=== PATIENT | male | born 1975 | race Caucasian/White ===

== ENCOUNTER 2020-05-22 03:07 | Emergency (ER) | payer OTHER ==
[~2020-05-22 03:07] MED LIST: BACITRACIN15 GM TOP; COZAAR 100MG T100 MG PO; FLEXERIL10 MG PO; IBUPROFEN800 MG PO; MEDROL 4MG DOSEP4 MG PO; NORCO 5-325 TA1 EACH PO; PROTONIX 40MG T40 MG PO; TESSALON PERLE100 M1 PO; VENTOLIN HFA18 GM INH; ZOLOFT100 MG PO
== END 2020-05-22 04:02 ==
LOC: FER 03:07
DX: F10.10 Alcohol abuse, uncomplicated (principal); F17.200 Nicotine dependence, unspecified, uncomplicated; Z88.1 Allergy status to other antibiotic agents; Z88.8 Allergy status to other drugs, medicaments and biological substances; Y90.6 Blood alcohol level of 120-199 mg/100 ml
CPT/HCPCS: 36415; 99283; G0480

== ENCOUNTER 2020-05-27 18:34 | Emergency (ER) | payer OTHER ==
[2020-05-27] MEDS ORDERED: NORCO 5-325 TA1 EACH PO (19:21)
== END 2020-05-27 19:32 | disposition home or self-care (01) ==
LOC: FER 18:34
DX: S22.41XA Multiple fractures of ribs, right side, initial encounter for closed fracture (principal); F17.200 Nicotine dependence, unspecified, uncomplicated; W50.0XXA Accidental hit or strike by another person, initial encounter; Y35.811A Legal intervention involving manhandling, law enforcement official injured, initial encounter
CPT/HCPCS: 71101

== ENCOUNTER 2020-10-06 16:23 | Emergency (ER) | payer OTHER ==
[2020-10-06] MEDS ORDERED: NAPROXEN500 MG PO (18:17)
== END 2020-10-06 18:40 | disposition home or self-care (01) ==
LOC: FER 16:23
DX: M25.572 Pain in left ankle and joints of left foot (principal); F17.210 Nicotine dependence, cigarettes, uncomplicated; Z88.8 Allergy status to other drugs, medicaments and biological substances; Z98.890 Other specified postprocedural states
CPT/HCPCS: 73610

== ENCOUNTER 2020-10-11 19:14 | Emergency (ER) | payer OTHER ==
[~2020-10-11 19:14] MED LIST changes: +NAPROXEN500 MG PO
[2020-10-11] MEDS ORDERED: VOLTAREN **OUT50 MG PO (20:47)
[2020-10-11] MEDS ORDERED: NORCO 5-325 TA1 EACH PO (20:47)
== END 2020-10-11 21:10 | disposition home or self-care (01) ==
LOC: FER 19:14
DX: S86.112A Strain of other muscle(s) and tendon(s) of posterior muscle group at lower leg level, left leg, initial encounter (principal); F17.200 Nicotine dependence, unspecified, uncomplicated; Z79.1 Long term (current) use of non-steroidal anti-inflammatories (NSAID); Z88.8 Allergy status to other drugs, medicaments and biological substances; Z98.890 Other specified postprocedural states; X50.1XXA Overexertion from prolonged static or awkward postures, initial encounter
CPT/HCPCS: 99283

== ENCOUNTER 2020-11-04 15:46 | Emergency (ER) | payer OTHER ==
[~2020-11-04 15:46] MED LIST changes: +VOLTAREN **OUT50 MG PO
[2020-11-04 17:03] LABS: BASOPHIL 0.8 % (0-2); EOSINOPHIL 1.8 % (0-5); HGB 14.8 g/dl (13.2-18.0); LYMPHOCYTE 19.9 % (15-48); MCH 30.6 pg (25.0-31.0); MCHC 35.2 g/dL (32.0-36.0); MONOCYTE 5.3 % (0-12); MPV 10.3 fL (6.0-9.5); NEUTROPHIL 71.7 % (41-80); NRBC 0; PLT 259 K/uL (150-400); RBC 4.83 M/uL (4.70-6.00); RDW 12.5 % (11.5-14.0); WBC 10.9 K/uL (4.0-10.5)
[2020-11-04 17:05] LABS: ALBUMIN 3.5 g/dL (3.4-5.0); BILIRUBIN - TOTAL 0.2 mg/dL (0.2-1.0); BUN/CREAT RATIO (CALC) 18.4 RATIO; CREATININE 0.87 mg/dL (0.67-1.17); GLOBULIN (CALCULATION) 3.5 g/dL; POTASSIUM 4.1 mmol/L (3.5-5.1)
[2020-11-04 17:07] LABS: INR 1.03 (0.9-1.2); PROTHROMBIN TIME 12.9 SECONDS (11.8-13.4)
[2020-11-04] MEDS ORDERED: XARELTO15 MG PO (17:26)
== END 2020-11-04 18:06 | disposition home or self-care (01) ==
LOC: FER 15:46
PROVIDERS: Physician Assistant
DX: I82.432 Acute embolism and thrombosis of left popliteal vein (principal); F17.210 Nicotine dependence, cigarettes, uncomplicated; Z88.8 Allergy status to other drugs, medicaments and biological substances; Z88.1 Allergy status to other antibiotic agents
CPT/HCPCS: 36415; 73718; 80053; 85025; 85610; 93971